=== PATIENT | female | born 1950 | race African-American/Black ===

== ENCOUNTER 2017-10-28 19:19 | Inpatient (IN) ==
[2017-10-28] MEDS ORDERED: LORazepam 2 MG/1 ML VIAL IV STA (21:13)
[2017-10-28] MEDS ORDERED: LORazepam 2 MG/1 ML VIAL ONE (21:19)
[2017-10-28 21:31] LABS: Basophils % 0.7 % (0.0-0.8); Eosinophils # 0.1 10*3/uL (0.0-0.87); Eosinophils % 2.2 % (0.00-10.9); Hematocrit 29.6 VOL% (35.7-47.0); Hemoglobin 10.2 GM/DL (12.0-16.0); Immature Granulocytes % 0.7 %; Immature Granulocytes Absolute 0.04 #; Lymphocytes # 1.1 10*3/uL (1.4-4.0); Lymphocytes % 18.9 % (21.3-54.2); Mean Corpuscular HGB Conc 34.5 GM/DL (32-36); Mean Corpuscular Hemoglobin 29 PG (27-34); Mean Corpuscular Volume 83.6 FL (87-102); Mean Platelet Volume 9.8 FL (9.6-12.0); Monocytes # 0.7 10*3/uL (0.11-0.8); Monocytes % 11.1 % (1.7-12.7); Neutrophils % 66.4 % (38.7-73.9); Platelet Count 200 T/CUMM (130-400); Red Blood Count 3.54 MC/CUMM (3.8-5.5); Red Cell Distribution Width 13.3 % (9.3-17.3); White Blood Count 5.9 T/CUMM (4-12)
[2017-10-28 21:53] LABS: Alanine Aminotransferase 11 U/L (13-56); Albumin 3.7 G/DL (3.4-5.0); Alkaline Phosphatase 147 U/L (45-117); Aspartate Amino Transferase 14 U/L (0-37); Bilirubin,Total < 0.39 MG/DL (0.2-1.0); Blood Urea Nitrogen 17 MG/DL (7-18); Glucose 101 MG/DL (74-106); Osmolality,Calculated 274.8 MOS/KG (273-304); Potassium 2.9 MMOL/L (3.5-5.1); Sodium 137 MMOL/L (136-145); Total Protein 8.4 G/DL (6.4-8.3); Troponin I Only < 0.015 NG/ML (0.00-0.045)
[2017-10-29] MEDS ORDERED: POTASSIUM CHLORIDE 20 MEQ TABLET PO ONE (01:06)
[2017-10-29] MEDS ORDERED: ONDANSETRON 4 MG/2 ML VIAL IV PRN (01:06)
[2017-10-29] MEDS ORDERED: DEXTROSE 50% 25 GM/50 ML VIAL IV PRN (01:06)
[2017-10-29] MEDS ORDERED: GLUCAGON 1 MG VIAL IM PRN (01:06)
[2017-10-29] MEDS ORDERED: MORPHINE 2 MG/1 ML SYRINGE IV PRN (01:06)
[2017-10-29] MEDS ORDERED: LORazepam 2 MG/1 ML VIAL IV PRN (01:06)
[2017-10-29] MEDS ORDERED: traZODone 50 MG TABLET PO PRN (01:06)
[2017-10-29] MEDS ORDERED: CALCIUM CHLORIDE 1,000 MG/10 ML SYRINGE IV ONE (04:00)
[2017-10-29 06:30] LABS: Thyroid Stimulating Hormone 2.18 uIU/ml (0.358-3.74)
[2017-10-29] MEDS: INSULIN REGULAR 100 UNIT/ML SUBCUT SCH ×4 (08:37→21:33)
[2017-10-29] MEDS ORDERED: ESCITALOPRAM 10 MG TABLET PO SCH ×2 (09:00→14:54)
[2017-10-29] MEDS: ASPIRIN EC 81 MG TABLET PO SCH (09:43)
[2017-10-29] MEDS: MULTIVITAMIN (BEROCCA) TABLET PO SCH (09:43)
[2017-10-29] MEDS: DOCUSATE SODIUM 100 MG CAPSULE PO SCH ×2 (09:44→20:43)
[2017-10-29] MEDS: POTASSIUM CHLORIDE 20 MEQ TABLET PO SCH (09:44)
[2017-10-29] MEDS: METOPROLOL SUCCINATE XL 100 MG TABLET PO SCH ×2 (09:45→20:43)
[2017-10-29] MEDS: PANTOPRAZOLE 40 MG TABLET PO SCH (09:45)
[2017-10-29] MEDS: ENOXAPARIN 30 MG/0.3 ML SYRINGE SUBCUT SCH (09:46)
[2017-10-29] MEDS ORDERED: MAGNESIUM HYDROXIDE SUSP 30 ML UDCUP PO ONE (12:32)
[2017-10-29] MEDS ORDERED: MAGNESIUM HYDROXIDE SUSP 30 ML UDCUP PO PRN (12:33)
[2017-10-29] MEDS ORDERED: LOSARTAN 50 MG TABLET PO SCH (19:00)
[2017-10-29] MEDS: DIVALPROEX 500 MG TABLET PO SCH (20:43)
[2017-10-29] MEDS ORDERED: ISOSORBIDE MONONITRATE 60 MG TABLET PO SCH (21:00)
[2017-10-29] MEDS ORDERED: amLODIPine 5 MG TABLET PO SCH (21:00)
[2017-10-30] MEDS: PANTOPRAZOLE 40 MG TABLET PO SCH (08:33)
[2017-10-30] MEDS: DIVALPROEX 500 MG TABLET PO SCH (08:33)
[2017-10-30] MEDS: POTASSIUM CHLORIDE 20 MEQ TABLET PO SCH (08:33)
[2017-10-30] MEDS: MULTIVITAMIN (BEROCCA) TABLET PO SCH (08:33)
[2017-10-30] MEDS: ASPIRIN EC 81 MG TABLET PO SCH (08:33)
[2017-10-30] MEDS: METOPROLOL SUCCINATE XL 100 MG TABLET PO SCH (08:33)
[2017-10-30] MEDS: DOCUSATE SODIUM 100 MG CAPSULE PO SCH (09:01)
[2017-10-30] MEDS: INSULIN REGULAR 100 UNIT/ML SUBCUT SCH ×3 (09:01→18:47)
[2017-10-30] MEDS: ENOXAPARIN 30 MG/0.3 ML SYRINGE SUBCUT SCH (09:01)
[2017-10-30 18:57] VITALS: BP 165/68
[2017-10-30] MEDS ORDERED: LOSARTAN 50 MG TABLET PO SCH (21:00)
== END 2017-10-30 20:08 | disposition home or self-care (01) | DRG 91 ==
LOC: N.EDINP 19:19 → N.ED 19:19 → N.5E 23:48

== ENCOUNTER 2018-02-20 20:09 | Inpatient (IN) ==
[2018-02-20 21:06] LABS: Basophils % 0.6 % (0.0-0.8); Eosinophils # 0.1 10*3/uL (0.0-0.87); Eosinophils % 1.6 % (0.00-10.9); Hematocrit 31.6 VOL% (35.7-47.0); Hemoglobin 10.2 GM/DL (12.0-16.0); Immature Granulocytes % 0.9 %; Immature Granulocytes Absolute 0.06 #; Lymphocytes # 0.6 10*3/uL (1.4-4.0); Lymphocytes % 8.3 % (21.3-54.2); Mean Corpuscular HGB Conc 32.3 GM/DL (32-36); Mean Corpuscular Hemoglobin 28 PG (27-34); Mean Corpuscular Volume 87.5 FL (87-102); Mean Platelet Volume 10.7 FL (9.6-12.0); Monocytes # 0.7 10*3/uL (0.11-0.8); Monocytes % 9.4 % (1.7-12.7); NRBC # 0.03 10*3/uL; Neutrophils # 5.6 10*3/uL (1.4-7.4); Neutrophils % 79.2 % (38.7-73.9); Platelet Count 190 T/CUMM (130-400); Red Blood Count 3.61 MC/CUMM (3.8-5.5); Red Cell Distribution Width 13.9 % (9.3-17.3)
[2018-02-20 21:16] LABS: INR 1.2; PT Patient Result 12.5 SECS
[2018-02-20 21:22] LABS: Calcium 7.8 MG/DL (8.5-10.1); Osmolality,Calculated 283.4 MOS/KG (273-304); Potassium 3.4 MMOL/L (3.5-5.1)
[2018-02-20 21:28] LABS: Troponin I Only 0.018 NG/ML (0.00-0.045)
[2018-02-20] MEDS ORDERED: cloNIDine 0.1 MG TABLET PO STA (22:31)
[2018-02-20] MEDS ORDERED: cloNIDine 0.1 MG TABLET ONE (22:39)
[2018-02-20] MEDS ORDERED: GLUCAGON 1 MG VIAL IM PRN (23:45)
[2018-02-20] MEDS ORDERED: ONDANSETRON 4 MG/2 ML VIAL IV PRN (23:45)
[2018-02-20] MEDS ORDERED: DEXTROSE 50% 25 GM/50 ML VIAL IV PRN (23:45)
[2018-02-20] MEDS ORDERED: hydrALAZINE 20 MG/1 ML VIAL IV PRN (23:48)
[2018-02-21 05:24] LABS: Basophils % 0.6 % (0.0-0.8); Eosinophils # 0.1 10*3/uL (0.0-0.87); Eosinophils % 1.7 % (0.00-10.9); Hematocrit 30.7 VOL% (35.7-47.0); Hemoglobin 9.5 GM/DL (12.0-16.0); Immature Granulocytes % 0.9 %; Immature Granulocytes Absolute 0.06 #; Lymphocytes % 15.6 % (21.3-54.2); Mean Corpuscular HGB Conc 30.9 GM/DL (32-36); Mean Corpuscular Hemoglobin 28 PG (27-34); Mean Platelet Volume 10.6 FL (9.6-12.0); Monocytes # 0.7 10*3/uL (0.11-0.8); Monocytes % 10.5 % (1.7-12.7); NRBC # 0.05 10*3/uL; Neutrophils # 4.6 10*3/uL (1.4-7.4); Neutrophils % 70.7 % (38.7-73.9); Platelet Count 186 T/CUMM (130-400); Red Blood Count 3.45 MC/CUMM (3.8-5.5); Red Cell Distribution Width 13.7 % (9.3-17.3); White Blood Count 6.5 T/CUMM (4-12)
[2018-02-21 05:51] LABS: Calcium 7.8 MG/DL (8.5-10.1); Osmolality,Calculated 282.3 MOS/KG (273-304); Potassium 3.3 MMOL/L (3.5-5.1)
[2018-02-21] MEDS: INSULIN LISPRO 100 UNIT/ML SUBCUT SCH ×4 (08:42→20:39)
[2018-02-21] MEDS: METOCLOPRAMIDE 5 MG TABLET PO SCH ×4 (08:42→20:35)
[2018-02-21] MEDS: MULTIVITAMIN (BEROCCA) TABLET PO SCH (08:43)
[2018-02-21] MEDS: ASPIRIN EC 81 MG TABLET PO SCH (08:43)
[2018-02-21] MEDS: ESCITALOPRAM 10 MG TABLET PO SCH (08:44)
[2018-02-21] MEDS: POTASSIUM CHLORIDE 20 MEQ TABLET PO SCH (08:44)
[2018-02-21] MEDS: ISOSORBIDE MONONITRATE 60 MG TABLET PO SCH (08:44)
[2018-02-21] MEDS: METOPROLOL SUCCINATE XL 100 MG TABLET PO SCH ×2 (08:56→20:36)
[2018-02-21] MEDS: DOXEPIN 10 MG CAPSULE PO SCH ×2 (08:56→20:35)
[2018-02-21] MEDS: DIVALPROEX 500 MG TABLET PO SCH ×2 (08:56→20:36)
[2018-02-21] MEDS: LOSARTAN 50 MG TABLET PO SCH (09:00)
[2018-02-21] MEDS ORDERED: traZODone 50 MG TABLET PO PRN (11:19)
[2018-02-21] MEDS ORDERED: POTASSIUM CHLORIDE 20 MEQ TABLET PO ONE (11:49)
[2018-02-21] MEDS ORDERED: ZALEPLON 5 MG CAPSULE PO PRN (13:59)
[2018-02-21] MEDS ORDERED: risperiDONE 1 MG TABLET PO SCH (21:00)
[2018-02-21] MEDS ORDERED: amLODIPine 5 MG TABLET PO SCH (21:00)
[2018-02-22] MEDS: METOCLOPRAMIDE 5 MG TABLET PO SCH ×2 (09:33→12:43)
[2018-02-22] MEDS: DIVALPROEX 500 MG TABLET PO SCH (09:34)
[2018-02-22] MEDS: ASPIRIN EC 81 MG TABLET PO SCH (09:34)
[2018-02-22] MEDS: MULTIVITAMIN (BEROCCA) TABLET PO SCH (09:34)
[2018-02-22] MEDS: LOSARTAN 50 MG TABLET PO SCH (09:34)
[2018-02-22] MEDS: DOXEPIN 10 MG CAPSULE PO SCH (09:35)
[2018-02-22] MEDS: METOPROLOL SUCCINATE XL 100 MG TABLET PO SCH (09:35)
[2018-02-22] MEDS: ISOSORBIDE MONONITRATE 60 MG TABLET PO SCH (09:35)
[2018-02-22] MEDS: ESCITALOPRAM 10 MG TABLET PO SCH (09:35)
[2018-02-22] MEDS: POTASSIUM CHLORIDE 20 MEQ TABLET PO SCH (09:35)
[2018-02-22] MEDS: INSULIN LISPRO 100 UNIT/ML SUBCUT SCH ×2 (10:08→12:41)
[2018-02-22 12:01] VITALS: BP 167/67
== END 2018-02-22 14:42 | disposition home or self-care (01) | DRG 291 ==
LOC: N.ED 20:09 → N.EDINP 23:45 → SUATTDRO 23:45 → N.TELEN 02-21 00:03
PROVIDERS: ADMIT Internal Medicine; ATTEND Internal Medicine

== ENCOUNTER 2018-03-19 18:13 | Inpatient (IN) ==
[2018-03-19] MEDS ORDERED: LORazepam 2 MG/1 ML VIAL IV STA (20:28)
[2018-03-19 21:44] LABS: Basophils % 0.6 % (0.0-0.8); Eosinophils # 0.2 10*3/uL (0.0-0.87); Eosinophils % 2.9 % (0.00-10.9); Hematocrit 33.4 VOL% (35.7-47.0); Hemoglobin 10.5 GM/DL (12.0-16.0); Immature Granulocytes % 0.6 %; Immature Granulocytes Absolute 0.04 #; Lymphocytes # 1.6 10*3/uL (1.4-4.0); Lymphocytes % 25.5 % (21.3-54.2); Mean Corpuscular HGB Conc 31.4 GM/DL (32-36); Mean Corpuscular Hemoglobin 27 PG (27-34); Mean Corpuscular Volume 87.2 FL (87-102); Mean Platelet Volume 10.4 FL (9.6-12.0); Monocytes # 0.7 10*3/uL (0.11-0.8); Monocytes % 10.9 % (1.7-12.7); NRBC # 0.02 10*3/uL; Neutrophils # 3.7 10*3/uL (1.4-7.4); Neutrophils % 59.5 % (38.7-73.9); Platelet Count 218 T/CUMM (130-400); Red Blood Count 3.83 MC/CUMM (3.8-5.5); Red Cell Distribution Width 14.8 % (9.3-17.3); White Blood Count 6.2 T/CUMM (4-12)
[2018-03-19 22:09] LABS: Alanine Aminotransferase 11 U/L (13-56); Alkaline Phosphatase 146 U/L (45-117); Aspartate Amino Transferase 23 U/L (0-37); Blood Urea Nitrogen 34 MG/DL (7-18); Calcium 8.1 MG/DL (8.5-10.1); Glucose 111 MG/DL (74-106); Sodium 136 MMOL/L (136-145); Total Protein 7.8 G/DL (6.4-8.3); Troponin I Only 0.019 NG/ML (0.00-0.045)
[2018-03-19 23:19] LABS: Prolactin 295.8 NG/ML
[2018-03-20] MEDS ORDERED: DIVALPROEX 250 MG TABLET PO STA (01:08)
[2018-03-20] MEDS ORDERED: LORazepam 2 MG/1 ML VIAL IV STA (01:08)
[2018-03-20] MEDS ORDERED: DIVALPROEX 500 MG TABLET PO ONE (01:56)
[2018-03-20] MEDS ORDERED: MORPHINE 4 MG/1 ML VIAL IV PRN (02:18)
[2018-03-20] MEDS ORDERED: GLUCAGON 1 MG VIAL IM PRN (02:18)
[2018-03-20] MEDS ORDERED: DEXTROSE 50% 25 GM/50 ML VIAL IV PRN (02:18)
[2018-03-20] MEDS ORDERED: ONDANSETRON 4 MG/2 ML VIAL IV PRN (02:18)
[2018-03-20] MEDS ORDERED: LORazepam 2 MG/1 ML VIAL IV PRN (02:18)
[2018-03-20] MEDS: METOPROLOL SUCCINATE XL 100 MG TABLET PO SCH ×3 (03:11→21:12)
[2018-03-20] MEDS ORDERED: HALOPERIDOL 5 MG/ML AMP IV ONE (05:32)
[2018-03-20] MEDS: INSULIN REGULAR 100 UNIT/ML SUBCUT SCH ×4 (07:52→21:12)
[2018-03-20] MEDS ORDERED: FUROSEMIDE 40 MG/4 ML VIAL IV ONE (09:04)
[2018-03-20] MEDS ORDERED: FUROSEMIDE 100 MG/10 ML VIAL ONE (09:22)
[2018-03-20] MEDS ORDERED: EPOETIN ALFA 2,000 UNIT/1 ML VIAL IV PRN (09:43)
[2018-03-20 09:53] LABS: Calcium 8.1 MG/DL (8.5-10.1); Potassium 4.1 MMOL/L (3.5-5.1)
[2018-03-20 10:45] LABS: Hepatitis A Ab IgM Quant 0.19 Index; Hepatitis A Ab IgM Result Negative (Negative); Hepatitis B Core IgM Quant 0.18 Index; Hepatitis B Core IgM Result Negative (Negative); Hepatitis B Surface Ag Quant < 0.10 Index; Hepatitis B Surface Ag Result Negative (Negative); Hepatitis C Virus Ab Quant 0.17 Index; Hepatitis C Virus Ab Result Negative (Negative)
[2018-03-20] MEDS: DIVALPROEX 500 MG TABLET PO SCH ×2 (15:45→21:11)
[2018-03-20] MEDS: MULTIVITAMIN (BEROCCA) TABLET PO SCH (15:45)
[2018-03-20] MEDS: ISOSORBIDE MONONITRATE 60 MG TABLET PO SCH (15:45)
[2018-03-20] MEDS: DOCUSATE SODIUM 100 MG CAPSULE PO SCH ×2 (15:45→21:11)
[2018-03-20] MEDS: ESCITALOPRAM 10 MG TABLET PO SCH (15:46)
[2018-03-20] MEDS: ENOXAPARIN 30 MG/0.3 ML SYRINGE SUBCUT SCH (15:46)
[2018-03-20] MEDS: amLODIPine 5 MG TABLET PO SCH (15:46)
[2018-03-20] MEDS: PANTOPRAZOLE 40 MG TABLET PO SCH (15:46)
[2018-03-21] MEDS: INSULIN REGULAR 100 UNIT/ML SUBCUT SCH ×2 (07:37→11:35)
[2018-03-21] MEDS: amLODIPine 5 MG TABLET PO SCH (11:38)
[2018-03-21] MEDS: ENOXAPARIN 30 MG/0.3 ML SYRINGE SUBCUT SCH (11:38)
[2018-03-21] MEDS: DIVALPROEX 500 MG TABLET PO SCH (11:38)
[2018-03-21] MEDS: MULTIVITAMIN (BEROCCA) TABLET PO SCH (11:38)
[2018-03-21] MEDS: ISOSORBIDE MONONITRATE 60 MG TABLET PO SCH (11:38)
[2018-03-21] MEDS: ESCITALOPRAM 10 MG TABLET PO SCH (11:39)
[2018-03-21] MEDS: DOCUSATE SODIUM 100 MG CAPSULE PO SCH (11:39)
[2018-03-21] MEDS: METOPROLOL SUCCINATE XL 100 MG TABLET PO SCH (11:39)
[2018-03-21] MEDS: PANTOPRAZOLE 40 MG TABLET PO SCH (11:39)
[2018-03-21 15:51] VITALS: BP 148/70
== END 2018-03-21 16:13 | disposition home or self-care (01) | DRG 91 ==
LOC: N.ED 18:13 → N.EDINP 18:13 → N.5E 03-20 02:16
PROVIDERS: ADMIT Internal Medicine Geriatric Medicine; ATTEND Internal Medicine Geriatric Medicine

== ENCOUNTER 2018-08-25 11:05 | Inpatient (IN) ==
[2018-08-25 13:28] LABS: Basophils # 0.1 10*3/uL (0.0-0.2); Basophils % 0.7 % (0.0-0.8); Eosinophils # 0.2 10*3/uL (0.0-0.87); Eosinophils % 2.2 % (0.00-10.9); Hematocrit 29.5 VOL% (35.7-47.0); Hemoglobin 9.2 GM/DL (12.0-16.0); Immature Granulocytes % 0.6 %; Immature Granulocytes Absolute 0.04 #; Lymphocytes # 1.8 10*3/uL (1.4-4.0); Lymphocytes % 25.7 % (21.3-54.2); Mean Corpuscular HGB Conc 31.2 GM/DL (32-36); Mean Corpuscular Hemoglobin 29 PG (27-34); Mean Corpuscular Volume 91.9 FL (87-102); Mean Platelet Volume 11.1 FL (9.6-12.0); Monocytes # 0.6 10*3/uL (0.11-0.8); Monocytes % 8.1 % (1.7-12.7); Neutrophils # 4.5 10*3/uL (1.4-7.4); Neutrophils % 62.7 % (38.7-73.9); Platelet Count 188 T/CUMM (130-400); Red Blood Count 3.21 MC/CUMM (3.8-5.5); Red Cell Distribution Width 15.4 % (9.3-17.3); White Blood Count 7.2 T/CUMM (4-12)
[2018-08-25 13:49] LABS: Alanine Aminotransferase 11 U/L (13-56); Albumin 3.4 G/DL (3.4-5.0); Alkaline Phosphatase 117 U/L (45-117); Aspartate Amino Transferase 22 U/L (0-37); Blood Urea Nitrogen 59 MG/DL (7-18); Calcium 8.3 MG/DL (8.5-10.1); Glucose 90 MG/DL (74-106); Osmolality,Calculated 282.4 MOS/KG (273-304); Sodium 133 MMOL/L (136-145); Total Protein 8.4 G/DL (6.4-8.3)
[2018-08-25 13:50] LABS: Troponin I 0.051 NG/ML (0.00-0.045)
[2018-08-25 13:51] LABS: Potassium 6.4 MMOL/L (3.5-5.1)
[2018-08-25] MEDS ORDERED: CALCIUM CHLORIDE 1,000 MG/10 ML SYRINGE IV STA (13:59)
[2018-08-25] MEDS ORDERED: ALBUTEROL NEB SOLN 5 MG/ML 20 ML/BOTTLE CONT NEB STA (13:59)
[2018-08-25] MEDS ORDERED: DIVALPROEX 250 MG TABLET PO STA (14:04)
[2018-08-25] MEDS ORDERED: ACETAMINOPHEN 325 MG TABLET PO PRN (15:09)
[2018-08-25] MEDS ORDERED: ONDANSETRON 4 MG/2 ML VIAL IV PRN (15:09)
[2018-08-25] MEDS ORDERED: hydrALAZINE 20 MG/1 ML VIAL IV STA (15:23)
[2018-08-25] MEDS ORDERED: SODIUM POLYSTYRENE SULFATE 15 GM/60 ML BOTTLE PO ONE (15:38)
[2018-08-25] MEDS ORDERED: amLODIPine 5 MG TABLET PO ONE (17:23)
[2018-08-25] MEDS: amLODIPine 5 MG TABLET PO SCH (17:43)
[2018-08-25] MEDS: METOPROLOL SUCCINATE XL 100 MG TABLET PO SCH ×2 (19:46→20:25)
[2018-08-25] MEDS: DOXEPIN 10 MG CAPSULE PO SCH (23:08)
[2018-08-25] MEDS: ISOSORBIDE MONONITRATE 60 MG TABLET PO SCH (23:08)
[2018-08-25] MEDS: IRBESARTAN 150 MG TABLET PO SCH (23:11)
[2018-08-26 05:08] LABS: Basophils % 0.4 % (0.0-0.8); Eosinophils # 0.1 10*3/uL (0.0-0.87); Hematocrit 27.4 VOL% (35.7-47.0); Hemoglobin 8.5 GM/DL (12.0-16.0); Immature Granulocytes % 0.4 %; Immature Granulocytes Absolute 0.03 #; Lymphocytes # 1.1 10*3/uL (1.4-4.0); Lymphocytes % 15.4 % (21.3-54.2); Mean Corpuscular Hemoglobin 29 PG (27-34); Mean Corpuscular Volume 91.9 FL (87-102); Mean Platelet Volume 11.6 FL (9.6-12.0); Monocytes # 0.7 10*3/uL (0.11-0.8); Monocytes % 10.2 % (1.7-12.7); Neutrophils # 5.1 10*3/uL (1.4-7.4); Neutrophils % 71.6 % (38.7-73.9); Platelet Count 166 T/CUMM (130-400); Red Blood Count 2.98 MC/CUMM (3.8-5.5); Red Cell Distribution Width 15.4 % (9.3-17.3); White Blood Count 7.1 T/CUMM (4-12)
[2018-08-26 05:42] LABS: Calcium 8.1 MG/DL (8.5-10.1); Osmolality,Calculated 270.2 MOS/KG (273-304); Potassium 4.6 MMOL/L (3.5-5.1); Risk Ratio 4.3; Thyroid Stimulating Hormone 3.21 uIU/ml (0.358-3.74); VLDL CHOLESTEROL 18.4 MG/DL
[2018-08-26] MEDS ORDERED: HEPARIN 10,000 UNIT/10 ML VIAL IV PRN (06:36)
[2018-08-26] MEDS: risperiDONE 1 MG TABLET PO SCH (10:11)
[2018-08-26] MEDS: METOPROLOL SUCCINATE XL 100 MG TABLET PO SCH ×2 (10:11→20:56)
[2018-08-26] MEDS: ASPIRIN EC 81 MG TABLET PO SCH (10:11)
[2018-08-26] MEDS: PANTOPRAZOLE 40 MG TABLET PO SCH (10:11)
[2018-08-26] MEDS: MULTIVITAMIN (BEROCCA) TABLET PO SCH (10:11)
[2018-08-26 11:45] LABS: Hepatitis B Surface Ag Quant < 0.10 Index; Hepatitis B Surface Ag Result Negative (Negative)
[2018-08-26] MEDS: IRBESARTAN 150 MG TABLET PO SCH (20:56)
[2018-08-26] MEDS: DIVALPROEX 500 MG TABLET PO SCH (20:56)
[2018-08-26] MEDS: ISOSORBIDE MONONITRATE 60 MG TABLET PO SCH (20:56)
[2018-08-26] MEDS: amLODIPine 5 MG TABLET PO SCH (21:00)
[2018-08-26] MEDS: DOXEPIN 10 MG CAPSULE PO SCH (21:01)
[2018-08-27 05:47] LABS: Basophils % 0.4 % (0.0-0.8); Eosinophils # 0.3 10*3/uL (0.0-0.87); Eosinophils % 6.2 % (0.00-10.9); Hematocrit 28.1 VOL% (35.7-47.0); Hemoglobin 8.7 GM/DL (12.0-16.0); Immature Granulocytes % 0.6 %; Immature Granulocytes Absolute 0.03 #; Lymphocytes # 1.1 10*3/uL (1.4-4.0); Lymphocytes % 20.9 % (21.3-54.2); Mean Corpuscular Hemoglobin 29 PG (27-34); Mean Corpuscular Volume 93.4 FL (87-102); Mean Platelet Volume 10.9 FL (9.6-12.0); Monocytes # 0.8 10*3/uL (0.11-0.8); Monocytes % 14.5 % (1.7-12.7); Neutrophils % 57.4 % (38.7-73.9); Platelet Count 174 T/CUMM (130-400); Red Blood Count 3.01 MC/CUMM (3.8-5.5); Red Cell Distribution Width 15.2 % (9.3-17.3); White Blood Count 5.2 T/CUMM (4-12)
[2018-08-27 06:03] LABS: Calcium 7.5 MG/DL (8.5-10.1); Osmolality,Calculated 276.2 MOS/KG (273-304); Potassium 5.5 MMOL/L (3.5-5.1)
[2018-08-27] MEDS: ASPIRIN EC 81 MG TABLET PO SCH (08:35)
[2018-08-27] MEDS: PANTOPRAZOLE 40 MG TABLET PO SCH (08:35)
[2018-08-27] MEDS: MULTIVITAMIN (BEROCCA) TABLET PO SCH (08:35)
[2018-08-27] MEDS: risperiDONE 1 MG TABLET PO SCH (08:35)
[2018-08-27] MEDS: DIVALPROEX 500 MG TABLET PO SCH (08:35)
[2018-08-27] MEDS: METOPROLOL SUCCINATE XL 100 MG TABLET PO SCH (08:36)
[2018-08-27 16:06] VITALS: BP 108/64
== END 2018-08-27 17:07 | disposition home health service (06) ==
LOC: N.ED 11:05 → SUATTDRO 15:07 → N.EDINP 15:07 → N.2E 15:43
PROVIDERS: ATTEND Internal Medicine

== ENCOUNTER 2018-11-14 11:58 | Inpatient (IN) ==
[2018-11-14] MEDS ORDERED: ONDANSETRON 4 MG/2 ML VIAL IV STA (12:23)
[2018-11-14] MEDS ORDERED: hydrALAZINE 20 MG/1 ML VIAL ONE (12:39)
[2018-11-14] MEDS ORDERED: cloNIDine 0.1 MG TABLET ONE (12:39)
[2018-11-14] MEDS ORDERED: cloNIDine 0.1 MG TABLET PO STA (13:09)
[2018-11-14] MEDS ORDERED: hydrALAZINE 20 MG/1 ML VIAL IV STA ×2 (13:09→13:38)
[2018-11-14 13:29] LABS: Basophils % 0.6 % (0.0-0.8); Eosinophils % 0.8 % (0.00-10.9); Immature Granulocytes % 0.8 %; Immature Granulocytes Absolute 0.04 #; Lymphocytes # 0.7 10*3/uL (1.4-4.0); Lymphocytes % 13.1 % (21.3-54.2); Mean Corpuscular HGB Conc 32.1 GM/DL (32-36); Mean Corpuscular Hemoglobin 32 PG (27-34); Mean Corpuscular Volume 98.2 FL (87-102); Mean Platelet Volume 12.6 FL (9.6-12.0); Monocytes # 0.5 10*3/uL (0.11-0.8); NRBC # 0.03 10*3/uL; Neutrophils # 3.9 10*3/uL (1.4-7.4); Neutrophils % 75.7 % (38.7-73.9); Platelet Count 109 T/CUMM (130-400); Red Blood Count 2.85 MC/CUMM (3.8-5.5); Red Cell Distribution Width 16.1 % (9.3-17.3); White Blood Count 5.1 T/CUMM (4-12)
[2018-11-14 13:31] LABS: Albumin 3.2 G/DL (3.4-5.0); Bilirubin,Total 0.5 MG/DL (0.2-1.0); Calcium 8.1 MG/DL (8.5-10.1); Osmolality,Calculated 287.3 MOS/KG (273-304); Potassium 3.5 MMOL/L (3.5-5.1); Total Protein 7.7 G/DL (6.4-8.3)
[2018-11-14] MEDS ORDERED: niCARdipine 25 MG/10 ML VIAL IV ONE (15:11)
[2018-11-14] MEDS: niCARdipine INJ 25 MG in SODIUM CHLORIDE 0.9% 240 ML IV PRN ×2 (15:26→19:04)
[2018-11-14] MEDS ORDERED: LOPERAMIDE 2 MG CAPSULE PO PRN (16:19)
[2018-11-14] MEDS ORDERED: ONDANSETRON 4 MG/2 ML VIAL IV PRN (16:32)
[2018-11-14] MEDS ORDERED: cloNIDine 0.3 MG/24 HR PATCH TRANSDERM SCH (17:00)
[2018-11-14] MEDS: FUROSEMIDE 100 MG/10 ML VIAL IV SCH (17:26)
[2018-11-14] MEDS: ENOXAPARIN 30 MG/0.3 ML SYRINGE SUBCUT SCH (17:26)
[2018-11-14] MEDS: hydrALAZINE 20 MG/1 ML VIAL IV SCH ×2 (17:27→22:30)
[2018-11-15] MEDS: niCARdipine INJ 25 MG in SODIUM CHLORIDE 0.9% 240 ML IV PRN ×2 (00:26→07:01)
[2018-11-15 02:31] LABS: Basophils % 0.5 % (0.0-0.8); Eosinophils # 0.1 10*3/uL (0.0-0.87); Eosinophils % 1.7 % (0.00-10.9); Hemoglobin 7.8 GM/DL (12.0-16.0); Immature Granulocytes % 0.7 %; Immature Granulocytes Absolute 0.03 #; Lymphocytes # 0.8 10*3/uL (1.4-4.0); Mean Corpuscular HGB Conc 31.2 GM/DL (32-36); Mean Corpuscular Hemoglobin 31 PG (27-34); Mean Platelet Volume 10.3 FL (9.6-12.0); Monocytes # 0.6 10*3/uL (0.11-0.8); Monocytes % 14.9 % (1.7-12.7); NRBC # 0.04 10*3/uL; Neutrophils # 2.7 10*3/uL (1.4-7.4); Neutrophils % 64.2 % (38.7-73.9); Platelet Count 89 T/CUMM (130-400); Red Cell Distribution Width 16.5 % (9.3-17.3); White Blood Count 4.2 T/CUMM (4-12)
[2018-11-15 02:50] LABS: Calcium 7.2 MG/DL (8.5-10.1); Osmolality,Calculated 291.8 MOS/KG (273-304); Potassium 3.4 MMOL/L (3.5-5.1); Troponin I 0.112 NG/ML (0.00-0.045)
[2018-11-15 03:37] LABS: Hepatitis A Ab IgM Quant 0.17 Index; Hepatitis A Ab IgM Result Negative (Negative); Hepatitis B Core IgM Quant 0.06 Index; Hepatitis B Core IgM Result Negative (Negative); Hepatitis B Surface Ag Quant < 0.10 Index; Hepatitis B Surface Ag Result Negative (Negative); Hepatitis C Virus Ab Quant < 0.02 Index; Hepatitis C Virus Ab Result Negative (Negative)
[2018-11-15] MEDS: hydrALAZINE 20 MG/1 ML VIAL IV SCH ×4 (04:30→16:39)
[2018-11-15] MEDS: FUROSEMIDE 100 MG/10 ML VIAL IV SCH (07:41)
[2018-11-15] MEDS ORDERED: EPOETIN ALFA 10,000 UNIT/1 ML VIAL IV PRN (08:23)
[2018-11-15] MEDS ORDERED: GLUCAGON 1 MG VIAL IM PRN (08:26)
[2018-11-15] MEDS ORDERED: DEXTROSE 50% 25 GM/50 ML SYRINGE IV PRN (08:26)
[2018-11-15] MEDS: ASPIRIN EC 81 MG TABLET PO SCH (09:01)
[2018-11-15] MEDS: MULTIVITAMIN (BEROCCA) TABLET PO SCH (09:01)
[2018-11-15] MEDS: DIVALPROEX 500 MG TABLET PO SCH ×2 (09:02→20:44)
[2018-11-15] MEDS: METOPROLOL SUCCINATE XL 100 MG TABLET PO SCH ×2 (09:02→19:38)
[2018-11-15] MEDS: risperiDONE 1 MG TABLET PO SCH (09:02)
[2018-11-15] MEDS: INSULIN REGULAR 100 UNIT/ML SUBCUT SCH ×3 (11:08→20:58)
[2018-11-15] MEDS: SEVELAMER CARBONATE 800 MG TABLET PO SCH ×2 (11:09→16:39)
[2018-11-15] MEDS ORDERED: LOSARTAN 50 MG TABLET PO ONE (13:30)
[2018-11-15] MEDS: ENOXAPARIN 30 MG/0.3 ML SYRINGE SUBCUT SCH (16:39)
[2018-11-15] MEDS ORDERED: ISOSORBIDE MONONITRATE 60 MG TABLET PO SCH (21:00)
[2018-11-15] MEDS ORDERED: LOSARTAN 50 MG TABLET PO SCH (21:00)
[2018-11-15] MEDS ORDERED: traZODone 50 MG TABLET PO SCH (21:00)
[2018-11-15] MEDS ORDERED: amLODIPine 5 MG TABLET PO SCH (21:00)
[2018-11-15] MEDS ORDERED: hydrALAZINE 20 MG/1 ML VIAL IV PRN (22:07)
[2018-11-15 22:19] VITALS: BP 149/60
[2018-11-16] MEDS ORDERED: amLODIPine 5 MG TABLET PO SCH (06:28)
[2018-11-16] MEDS: INSULIN REGULAR 100 UNIT/ML SUBCUT SCH (08:13)
[2018-11-16] MEDS: SEVELAMER CARBONATE 800 MG TABLET PO SCH (08:43)
[2018-11-16] MEDS: METOPROLOL SUCCINATE XL 100 MG TABLET PO SCH (08:43)
[2018-11-16] MEDS: DIVALPROEX 500 MG TABLET PO SCH (08:43)
[2018-11-16] MEDS: MULTIVITAMIN (BEROCCA) TABLET PO SCH (08:43)
[2018-11-16] MEDS: risperiDONE 1 MG TABLET PO SCH (08:43)
[2018-11-16] MEDS: ASPIRIN EC 81 MG TABLET PO SCH (08:43)
== END 2018-11-16 09:54 | disposition home or self-care (01) | DRG 291 ==
LOC: EDBD → EDUNIT# → N.ED 11:58 → N.EDINP 16:00 → SUATTDRO 16:00 → N.CC 16:28
PROVIDERS: ADMIT Internal Medicine; ATTEND Hospitalist